=== PATIENT | female | born 1980 | race Caucasian/White ===

== ENCOUNTER 2016-08-15 12:27 | Inpatient (IN) | payer BC ==
[2016-08-15 14:59] VITALS: BMI 20.2
--- NOTE | 2016-08-15 20:18 | HP ---
Admission ROS [facility] Chief Complaint: I WANT TO GO TO REHAB Allergies/Adverse Reactions: Allergies Allergy/AdvReac Type Severity Reaction Status Date / Time peanut Allergy Verified 08/15/16 19:54 shellfish Allergy Mild Uncoded 08/15/16 19:54 History of Present Illness: 36 YEARS OLD FEMALE WITH LONG HISTORY OF ALCOHOL NICOTINE DEPENDENCE, HAS LUPUS AND OSTEOPENIA AND DEPRESSION IS ADMITTED TO REHAB Exam Limitations: No Limitations - Ebola screening Have you traveled outside of the country in the last 21 days: No Have you had contact with anyone from an Ebola affected area: No Have you been sick,other than usual withdrawal symptoms: No Do you have a fever: No - Review of Systems Constitutional: Weight Stable EENT: reports: No Symptoms Reported, Other (NEED EYE GLASSES) Respiratory: reports: No Symptoms reported Cardiac: reports: No Symptoms Reported GI: reports: No Symptoms Reported : reports: No Symptoms Reported Musculoskeletal: reports: Joint Pain (LUPUS) Integumentary: reports: Rash (FACE) Neuro: reports: No Symptoms reported, Seizure (DO NOT REMEMBER WHEN WAS THE FIRST SEIZURE AND WHEN WAS THE LAST, NO TREATMENT) Endocrine: reports: No Symptoms Reported Hematology: reports: No Symptoms Reported Psychiatric: reports: Judgement Intact, Orientated x3, Depressed Other Systems: Reviewed and Negative Patient History - Patient Medical History Hx Anemia: No Hx Asthma: No Hx Chronic Obstructive Pulmonary Disease (COPD): No Hx Cancer: No Hx Cardiac Disorders: No Hx Congestive Heart Failure: No Hx Hypertension: No Hx Hypercholesterolemia: No Hx Pacemaker: No HX Cerebrovascular Accident: No Hx Seizures: Yes (UNKNOWN) Hx Dementia: No Hx Diabetes: No Hx Gastrointestinal Disorders: No Hx Liver Disease: No Hx Genitourinary Disorders: No Hx Sexually Transmitted Disorders: No Hx Renal Disease (ESRD): No Hx Thyroid Disease: No Hx Human Immunodeficiency Virus (HIV): No Hx Hepatitis C: No Hx Depression: Yes Hx Suicide Attempt: No Hx Bipolar Disorder: No Hx Schizophrenia: No - Patient Surgical History Past Surgical History: Yes Hx Neurologic Surgery: No Hx Cataract Extraction: No Hx Cardiac Surgery: No Hx Lung Surgery: No Hx Breast Surgery: No Hx Breast Biopsy: No Hx Abdominal Surgery: No Hx Appendectomy: No Hx Cholecystectomy: No Hx Genitourinary Surgery: No Hx Section: No Hx Orthopedic Surgery: Yes (LEFT 5TH FINGER 2016) Hx Hysterectomy: No Other Surgical History: LEFT LEG 2012 Anesthesia Reaction: No - PPD History Previous Implant?: Yes Documented Results: Negative w/o proof Implanted On Prior [facility] Admission?: No PPD to be Administered?: Yes - Reproductive History Patient is a Female of Child Bearing Age (11 -55 yrs old): Yes Last Menstrual Period: 08/12/16 Patient : No - Smoking Cessation Smoking history: Current every day smoker Have you smoked in the past 12 months: Yes Aproximately how many cigarettes per day: 30 Cigars Per Day: 0 Hx Chewing Tobacco Use: No Initiated information on smoking cessation: Yes 'Breaking Loose' booklet given: 08/15/16 - Substance & Tx. History Hx Alcohol Use: Yes Hx Substance Use: No Substance Use Type: Alcohol Hx Substance Use Treatment: Yes - Substances Abused Alcohol Route: Oral Frequency: Daily Amount used: [place] Age of first use: 15 Date of Last Use: 08/09/16 Family Disease History - Family Disease History Family Disease History: Diabetes: Father, Heart Disease: Grandparent, Respiratory: Mother Admission Physical Exam S - Vital Signs Vital Signs: Vital Signs - 24 hr 08/15/16 14:52 Temperature 96 F L Pulse Rate 103 H Respiratory 20 Rate Blood Pressure 117/90 - Physical General Appearance: Yes: No Apparent Distress, Appropriately Dressed, Thin HEENTM: Yes: Hearing grossly Normal, Normal ENT Inspection, Normocephalic, Normal Voice Respiratory: Yes: Chest Non-Tender, Lungs Clear, Normal Breath Sounds, No Respiratory Distress, No Accessory Muscle Use Neck: Yes: Supple, Trachea in good position Breast: Yes: Breasts Symetrical Cardiology: Yes: Regular Rhythm, Regular Rate, S1, S2 Abdominal: Yes: Non Tender, Soft Genitourinary: Yes: Within Normal Limits Back: Yes: Normal Inspection Musculoskeletal: Yes: full range of Motion, Gait Steady, Back pain (LUPUS), Muscle Pain Extremities: Yes: Normal Range of Motion, Non-Tender Neurological: Yes: Fully Oriented, Alert, Motor Strength 5/5, Normal Response, Depressed Affect Integumentary: Yes: Warm Lymphatic: Yes: Within Normal Limits - Diagnostic (1) Alcohol dependence with uncomplicated withdrawal Current Visit: Yes Status: Acute (2) Methadone maintenance therapy patient Current Visit: Yes Status: Acute Comment: 40 MG VERIFICATION PENDING (3) Lupus Current Visit: Yes Status: Acute Comment: PLAQUENIL 200 MG PO BID (4) Osteopenia Current Visit: Yes Status: Acute Comment: CALCIUM 1500 MG DAILY (5) Nicotine dependence Current Visit: Yes Status: Acute Qualifiers: Nicotine product type: cigarettes Substance use status: in withdrawal Qualified Code(s): F17.213 - Nicotine dependence, cigarettes, with withdrawal (6) Acne Current Visit: Yes Status: Acute Qualifiers: Acne type: other acne Qualified Code(s): L70.8 - Other acne Comment: BENZYL PEROXIDE Cleared for Admission S - Detox or Rehab [facility] Level of Care: Observation Bed Detox Regimen/Protocol: Not Applicable Claeared for Rehab Admission: Yes [facility] Breath Alcohol Content Breath Alcohol Content: 0 Urine Pregancy Test - Result Urine Test Results: Negative- NO Line Present Urine Drug Screen - Results Drug Screen Negative: No Urine Drug Screen Results: MTD-Methadone
[2016-08-15] MEDS ORDERED: P-EPHED 60MG/TRIPROLIDI 2.5MG TABLET PO PRN (20:22)
[2016-08-15] MEDS ORDERED: NICOTINE POLACRILEX 4 MG GUM BC PRN (20:22)
[2016-08-15] MEDS ORDERED: LOPERAMIDE HCL 2 MG CAPSULE PO PRN (20:22)
[2016-08-15] MEDS ORDERED: MAGNESIUM HYDROX 2400MG/30ML ORAL SUSPENSION 30 ML CUP PO PRN (20:22)
[2016-08-15] MEDS ORDERED: MAGNESIUM CITRATE 300 ML BOTTLE PO PRN (20:22)
[2016-08-15] MEDS: THIAMINE HCL 100 MG TABLET (FP) PO SCH (22:25)
[2016-08-15] MEDS: MAG HYDROX/AL HYDROX/SIMETH 30 ML UNIT-DOSE CUP PO PRN (22:28)
[2016-08-15] MEDS: CLINDAMYCIN PHOSPHATE 1% TOPICAL SOLUTION 30 ML BOTTLE TP SCH (22:30)
[2016-08-15] MEDS: predniSONE 5 MG TABLET (UD) PO SCH (22:32)
[2016-08-15] MEDS: HYDROXYCHLOROQUINE SO4 200 MG TABLET (FP) PO SCH (22:32)
[2016-08-15] MEDS ORDERED: PT OWN MED DRAWER 7, Y5N ONE ×2 (22:50→23:40)
[2016-08-16] MEDS: METHADONE HCL 40 MG DISPERSABLE TABLET PO SCH (08:57)
[2016-08-16] MEDS ORDERED: PT OWN MED DRAWER 7, Y5N ONE (08:59)
[2016-08-16] MEDS: predniSONE 5 MG TABLET (UD) PO SCH ×2 (09:57→21:27)
[2016-08-16] MEDS: PRENATAL VITAMINS W/ FOLIC ACID TABLET (FP) PO SCH (09:57)
[2016-08-16] MEDS ORDERED: BENZOYL PEROXIDE 5% 60 GM GEL..GRAM. TP SCH (10:00)
[2016-08-16] MEDS: HYDROXYCHLOROQUINE SO4 200 MG TABLET (FP) PO SCH ×2 (10:00→21:26)
[2016-08-16] MEDS ORDERED: CALCIUM (OYSTER SHELL) 500 MG TABLET (FP) PO SCH (10:00)
[2016-08-16] MEDS: NICOTINE 21 MG/24 HOURS TOPICAL PATCH TD SCH (10:01)
[2016-08-16 11:13] LABS: MCH 32.4 pg (25.7-33.7); MCHC 33.4 g/dl (32.0-36.0); MEAN CELL VOLUME 96.9 fl (80-96); MEAN PLT VOLUME 7.9 fl (7.5-11.1); PLATELET COUNT 271 K/MM3 (134-434); RDW 14.7 % (11.6-15.6); WHITE BLOOD COUNT 6.1 K/mm3 (4.0-10.0)
[2016-08-16 11:30] LABS: ALBUMIN 4.2 g/dl (3.4-5.0); ALK PHOS 122 U/L (45-117); ANION GAP 9 (8-16); BILIRUBIN,TOTAL 0.3 mg/dL (0.2-1.0); CO2 27 mmol/L (21-32); CREATININE 0.6 mg/dL (0.55-1.02); GLUCOSE,RANDOM 94 mg/dL (74-106); SGOT/AST 57 U/L (15-37); SGPT/ALT 85 U/L (12-78); TOT PROT 9.2 g/dl (6.4-8.2)
[2016-08-16 12:58] LABS: URINE APPEARANCE CLEAR; URINE BILIRUBIN NEGATIVE (NEGATIVE); URINE BLOOD NEGATIVE (NEGATIVE); URINE COLOR YELLOW; URINE GLUCOSE (UA) NEGATIVE (NEGATIVE); URINE KETONE NEGATIVE (NEGATIVE); URINE NITRITE NEGATIVE (NEGATIVE); URINE PROTEIN NEGATIVE (NEGATIVE); URINE UROBILINOGEN NEGATIVE E.U./dl (0.2-1.0)
[2016-08-16 13:01] LABS: URINE LEUK ESTERASE 1+ (NEGATIVE)
[2016-08-16 13:10] LABS: URINE BACTERIA RARE /hpf (NONE SEEN); URINE MUCUS RARE; URINE RBC 2 /hpf (0-3); URINE WBC 7 /hpf (3-5)
[2016-08-16] MEDS: diphenhydrAMINE HCL 50 MG CAPSULE PO PRN (21:26)
[2016-08-16] MEDS: CLINDAMYCIN PHOSPHATE 1% TOPICAL SOLUTION 30 ML BOTTLE TP SCH (21:27)
[2016-08-16] MEDS: THIAMINE HCL 100 MG TABLET (FP) PO SCH (21:28)
[2016-08-16] MEDS: CALCIUM 500MG/VIT-D 200 UNITS COMBO TABLET (FP) PO SCH (21:28)
[2016-08-17] MEDS: METHADONE HCL 40 MG DISPERSABLE TABLET PO SCH (06:32)
[2016-08-17] MEDS ORDERED: PT OWN MED DRAWER 7, Y5N ONE ×2 (08:54→19:42)
[2016-08-17] MEDS: HYDROXYCHLOROQUINE SO4 200 MG TABLET (FP) PO SCH ×2 (09:50→21:29)
[2016-08-17] MEDS: PRENATAL VITAMINS W/ FOLIC ACID TABLET (FP) PO SCH (09:50)
[2016-08-17] MEDS: NICOTINE 21 MG/24 HOURS TOPICAL PATCH TD SCH (09:50)
[2016-08-17] MEDS: predniSONE 5 MG TABLET (UD) PO SCH ×2 (09:50→21:29)
[2016-08-17] MEDS: CALCIUM 500MG/VIT-D 200 UNITS COMBO TABLET (FP) PO SCH ×2 (09:50→21:30)
[2016-08-17] MEDS: THIAMINE HCL 100 MG TABLET (FP) PO SCH (21:29)
[2016-08-17] MEDS: diphenhydrAMINE HCL 50 MG CAPSULE PO PRN (21:29)
[2016-08-17] MEDS: CLINDAMYCIN PHOSPHATE 1% TOPICAL SOLUTION 30 ML BOTTLE TP SCH (21:30)
--- NOTE | 2016-08-17 22:37 | EKG ---
Test Reason : Blood Pressure : / mmHG Vent. Rate : 070 BPM Atrial Rate : 070 BPM P-R Int : 142 ms QRS Dur : 084 ms QT Int : 436 ms P-R-T Axes : 051 058 045 degrees QTc Int : 470 ms POOR DATA QUALITY, INTERPRETATION MAY BE ADVERSELY AFFECTED NORMAL SINUS RHYTHM EARLY REPOLARIZATION BORDERLINE ECG PROLONGED QT NO PREVIOUS ECGS AVAILABLE Confirmed by RADHA FU MD ([id number]) on 08/17/2016 10:36:58 PM Referred By: Navid Smart Confirmed By:RADHA FU MD
[2016-08-18] MEDS: METHADONE HCL 40 MG DISPERSABLE TABLET PO SCH (06:57)
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
[2016-08-18] MEDS ORDERED: PT OWN MED DRAWER 7, Y5N ONE ×3 (08:48→19:19)
[2016-08-18] MEDS: PRENATAL VITAMINS W/ FOLIC ACID TABLET (FP) PO SCH (10:05)
[2016-08-18] MEDS: predniSONE 5 MG TABLET (UD) PO SCH ×2 (10:05→21:26)
[2016-08-18] MEDS: HYDROXYCHLOROQUINE SO4 200 MG TABLET (FP) PO SCH ×2 (10:05→21:26)
[2016-08-18] MEDS: NICOTINE 21 MG/24 HOURS TOPICAL PATCH TD SCH (10:05)
[2016-08-18] MEDS: CALCIUM 500MG/VIT-D 200 UNITS COMBO TABLET (FP) PO SCH ×2 (10:32→21:27)
[2016-08-18] MEDS: THIAMINE HCL 100 MG TABLET (FP) PO SCH (21:27)
[2016-08-18] MEDS: diphenhydrAMINE HCL 50 MG CAPSULE PO PRN (21:27)
[2016-08-18] MEDS: CLINDAMYCIN PHOSPHATE 1% TOPICAL SOLUTION 30 ML BOTTLE TP SCH (21:28)
[2016-08-19] MEDS: METHADONE HCL 40 MG DISPERSABLE TABLET PO SCH (06:27)
[2016-08-19] MEDS ORDERED: PT OWN MED DRAWER 7, Y5N ONE ×4 (08:56→22:02)
[2016-08-19] MEDS: CALCIUM 500MG/VIT-D 200 UNITS COMBO TABLET (FP) PO SCH ×2 (09:28→22:00)
[2016-08-19] MEDS: predniSONE 5 MG TABLET (UD) PO SCH ×2 (09:28→22:00)
[2016-08-19] MEDS: PRENATAL VITAMINS W/ FOLIC ACID TABLET (FP) PO SCH (09:28)
[2016-08-19] MEDS: HYDROXYCHLOROQUINE SO4 200 MG TABLET (FP) PO SCH ×2 (09:28→22:02)
[2016-08-19] MEDS: NICOTINE 21 MG/24 HOURS TOPICAL PATCH TD SCH (09:28)
--- NOTE | 2016-08-19 10:25 | PN ---
Psychiatric Progress Note Vital Signs: Vital Signs Period Temp Pulse Resp BP Sys/Jose Pulse Ox Last 24 Hr 98.2 F 76 18-18 102/69 Date of Session: 08/19/16 Chief Complaint:: complaining of experiencing nightmares HPI: Patient addressing Alcohol Dependence comorbid with Opoid Dependence on Agonist Therapy, Nicotine Dependence and Mood Disorder ROS: Start Prazosin 1 mg po HS Current Medications: Active Medications Generic Name Dose Route Start Last Admin Trade Name Freq PRN Reason Stop Dose Admin Acetaminophen 650 mg 08/15/16 20:22 Tylenol - PO Q4H PRN PAIN Al Hydroxide/Mg Hydroxide 30 ml 08/15/16 20:22 08/15/16 22:28 Mylanta Oral Suspension - PO 30 ml Q6H PRN Administration DYSPEPSIA Calcium Carbonate/Cholecalciferol 1 tab 08/16/16 22:00 08/19/16 09:28 Os-Moi 500+D - PO 1 tab BID TERRY Administration Clindamycin Phosphate 1 applic 08/15/16 22:00 08/18/16 21:28 Cleocin 1% Topical Solution - TP 1 applic HS TERRY Administration Diphenhydramine HCl 50 mg 08/15/16 20:22 08/18/16 21:27 Benadryl - PO 50 mg HSMR1 PRN Administration INSOMNIA Eucalyptus/Menthol/Phenol/Sorbitol 1 each 08/15/16 20:22 Cepastat Lozenge - MM Q4H PRN SORE THROAT Guaifenesin 10 ml 08/15/16 20:22 Robitussin Dm - PO Q6H PRN COUGH Hydroxychloroquine Sulfate 200 mg 08/15/16 22:00 08/19/16 09:28 Plaquenil - PO 200 mg BID TERRY Administration Ibuprofen 400 mg 08/15/16 20:22 Motrin - PO Q6H PRN SEVERE PAIN Loperamide HCl 4 mg 08/15/16 20:22 Imodium - PO Q6H PRN DIARRHEA Magnesium Citrate 300 ml 08/15/16 20:22 08/17/16 15:41 Citroma - PO 300 ml Q48H PRN Administration CONSTIPATION Magnesium Hydroxide 30 ml 08/15/16 20:22 08/17/16 09:54 Milk Of Magnesia - PO 30 ml DAILY PRN Administration CONSTIPATION Methadone HCl 40 mg 08/16/16 07:45 08/19/16 06:27 Dolophine - PO 40 mg DAILY@0600 TERRY Administration Nicotine 21 mg 08/16/16 10:00 08/19/16 09:28 Nicoderm Patch - TD 21 mg DAILY TERRY Administration Nicotine Polacrilex 4 mg 08/15/16 20:22 Nicorette Gum - BC Q2H PRN NICOTINE REPLACEMENT RX Prazosin HCl 1 mg 08/19/16 22:00 Minipress - PO HS TERRY Prednisone 5 mg 08/15/16 22:00 08/19/16 09:28 Deltasone - PO 5 mg BID TERRY Administration Multivit/Folic Acid/Iron 1 tab 08/16/16 10:00 08/19/16 09:28 Vitamins (Sjr) - PO 1 tab DAILY TERRY Administration Pseudoephedrine/Triprolidine 1 combo 08/15/16 20:22 Actifed - PO TID PRN NASAL CONGESTION Thiamine HCl 100 mg 08/15/16 22:00 08/18/16 21:27 Vitamin B1 - PO 100 mg HS TERRY Administration Current Side Effect: No Lab tests ordered: No Lab tests reviewed: Yes Provider note:: Reports experiencing a lot of nightmares making her sleep poorly. Told commercial underwriter that she is prescribed Prazosin she has been taking the night prior to admission and that medication has been helping her a lot. However she could not recall the dosage. Syrup Mixer called [facility] pharmacy on [address] in [place] after she provided the pharmacy phone number([phone]). According to pharmacist, patient is on Prazosin 1 mg po HS Total face to face time:: 25 Mental Status Exam - Mental Status Exam Alert and Oriented to: Time, Place, Person Cognitive Function: Fair Patient Appearance: Well Groomed Mood: Anxious, Irritable Affect: Appropriate Speech Pattern: Clear Voice Loudness: Normal Thought Process: Intact Thought Disorder: Not Present Hallucinations: Denies Suicidal Ideation: Denies Homicidal Ideation: Denies Insight/Judgement: Fair Sleep: Poorly Appetite: Good Muscle strength/Tone: Normal Gait/Station: Normal Psychiatric Treatment Plan - Problem List (1) Alcohol dependence with uncomplicated withdrawal Current Visit: Yes (2) Opioid dependence on agonist therapy Current Visit: Yes (3) Nicotine dependence Current Visit: Yes (4) Mood disorder Current Visit: Yes (5) Substance induced mood disorder Current Visit: Yes (6) Acne Current Visit: Yes Qualifiers: Acne type: other acne Qualified Code(s): L70.8 - Other acne Comment: BENZYL PEROXIDE (7) Lupus Current Visit: Yes Comment: PLAQUENIL 200 MG PO BID (8) Osteopenia Current Visit: Yes Comment: CALCIUM 1500 MG DAILY Initial treatment plan: 1) Start Prazosin 1 mg po HS. 2) Monitor progress
[2016-08-19 10:31] LABS: BASOPHIL 0.5 % (0-2.0); EOSINOPHIL 1.1 % (0-4.5); MCHC 32.8 g/dl (32.0-36.0); MEAN CELL VOLUME 97.6 fl (80-96); MEAN PLT VOLUME 7.6 fl (7.5-11.1); NEUTROPHILS 50.1 % (42.8-82.8); PLATELET COUNT 235 K/MM3 (134-434); RDW 14.6 % (11.6-15.6); WHITE BLOOD COUNT 4.3 K/mm3 (4.0-10.0)
[2016-08-19 13:15] LABS: ERYTHROCYTE SEDIMENTATION RATE 44 mm/hr (0-20)
[2016-08-19] MEDS: THIAMINE HCL 100 MG TABLET (FP) PO SCH (22:00)
[2016-08-19] MEDS: diphenhydrAMINE HCL 50 MG CAPSULE PO PRN (22:01)
[2016-08-19] MEDS: CLINDAMYCIN PHOSPHATE 1% TOPICAL SOLUTION 30 ML BOTTLE TP SCH (22:03)
[2016-08-19] MEDS: PRAZOSIN HCL 1 MG CAPSULE PO SCH (22:03)
[2016-08-20] MEDS: METHADONE HCL 40 MG DISPERSABLE TABLET PO SCH (06:26)
[2016-08-20] MEDS ORDERED: PT OWN MED DRAWER 7, Y5N ONE ×2 (09:03→21:09)
[2016-08-20] MEDS: CALCIUM 500MG/VIT-D 200 UNITS COMBO TABLET (FP) PO SCH ×2 (09:52→21:08)
[2016-08-20] MEDS: NICOTINE 21 MG/24 HOURS TOPICAL PATCH TD SCH (09:52)
[2016-08-20] MEDS: predniSONE 5 MG TABLET (UD) PO SCH ×2 (09:52→21:08)
[2016-08-20] MEDS: HYDROXYCHLOROQUINE SO4 200 MG TABLET (FP) PO SCH ×2 (09:52→21:09)
[2016-08-20] MEDS: PRENATAL VITAMINS W/ FOLIC ACID TABLET (FP) PO SCH (09:52)
[2016-08-20] MEDS: PRAZOSIN HCL 1 MG CAPSULE PO SCH (21:08)
[2016-08-20] MEDS: THIAMINE HCL 100 MG TABLET (FP) PO SCH (21:08)
[2016-08-20] MEDS: CLINDAMYCIN PHOSPHATE 1% TOPICAL SOLUTION 30 ML BOTTLE TP SCH (21:09)
[2016-08-21] MEDS: METHADONE HCL 40 MG DISPERSABLE TABLET PO SCH (05:50)
[2016-08-21] MEDS ORDERED: PT OWN MED DRAWER 7, Y5N ONE ×2 (09:18→21:04)
[2016-08-21] MEDS: predniSONE 5 MG TABLET (UD) PO SCH ×2 (10:09→21:03)
[2016-08-21] MEDS: PRENATAL VITAMINS W/ FOLIC ACID TABLET (FP) PO SCH (10:09)
[2016-08-21] MEDS: CALCIUM 500MG/VIT-D 200 UNITS COMBO TABLET (FP) PO SCH ×2 (10:10→21:03)
[2016-08-21] MEDS: HYDROXYCHLOROQUINE SO4 200 MG TABLET (FP) PO SCH ×2 (10:10→21:02)
[2016-08-21] MEDS: NICOTINE 21 MG/24 HOURS TOPICAL PATCH TD SCH (10:11)
[2016-08-21] MEDS: PRAZOSIN HCL 1 MG CAPSULE PO SCH (21:02)
[2016-08-21] MEDS: THIAMINE HCL 100 MG TABLET (FP) PO SCH (21:02)
[2016-08-21] MEDS: CLINDAMYCIN PHOSPHATE 1% TOPICAL SOLUTION 30 ML BOTTLE TP SCH (21:04)
[2016-08-21] MEDS: diphenhydrAMINE HCL 50 MG CAPSULE PO PRN (22:47)
[2016-08-22] MEDS: METHADONE HCL 40 MG DISPERSABLE TABLET PO SCH (05:51)
[2016-08-22] MEDS: predniSONE 5 MG TABLET (UD) PO SCH ×2 (09:41→21:28)
[2016-08-22] MEDS: CALCIUM 500MG/VIT-D 200 UNITS COMBO TABLET (FP) PO SCH ×2 (09:41→21:28)
[2016-08-22] MEDS: PRENATAL VITAMINS W/ FOLIC ACID TABLET (FP) PO SCH (09:41)
[2016-08-22] MEDS: HYDROXYCHLOROQUINE SO4 200 MG TABLET (FP) PO SCH ×2 (09:42→21:31)
[2016-08-22] MEDS: NICOTINE 21 MG/24 HOURS TOPICAL PATCH TD SCH (09:43)
[2016-08-22] MEDS ORDERED: PT OWN MED DRAWER 7, Y5N ONE ×4 (09:43→19:54)
[2016-08-22] MEDS: MAG HYDROX/AL HYDROX/SIMETH 30 ML UNIT-DOSE CUP PO PRN (15:14)
[2016-08-22] MEDS: PRAZOSIN HCL 1 MG CAPSULE PO SCH (21:28)
[2016-08-22] MEDS: diphenhydrAMINE HCL 50 MG CAPSULE PO PRN (21:28)
[2016-08-22] MEDS: THIAMINE HCL 100 MG TABLET (FP) PO SCH (21:28)
[2016-08-22] MEDS: CLINDAMYCIN PHOSPHATE 1% TOPICAL SOLUTION 30 ML BOTTLE TP SCH (21:31)
[2016-08-23] MEDS: METHADONE HCL 40 MG DISPERSABLE TABLET PO SCH (06:46)
[2016-08-23] MEDS: NICOTINE 21 MG/24 HOURS TOPICAL PATCH TD SCH (09:39)
[2016-08-23] MEDS: CALCIUM 500MG/VIT-D 200 UNITS COMBO TABLET (FP) PO SCH ×2 (09:39→21:17)
[2016-08-23] MEDS: HYDROXYCHLOROQUINE SO4 200 MG TABLET (FP) PO SCH ×2 (09:39→21:17)
[2016-08-23] MEDS: predniSONE 5 MG TABLET (UD) PO SCH ×2 (09:39→21:17)
[2016-08-23] MEDS: PRENATAL VITAMINS W/ FOLIC ACID TABLET (FP) PO SCH (09:39)
[2016-08-23] MEDS: THIAMINE HCL 100 MG TABLET (FP) PO SCH (21:16)
[2016-08-23] MEDS: PRAZOSIN HCL 1 MG CAPSULE PO SCH (21:16)
[2016-08-23] MEDS: diphenhydrAMINE HCL 50 MG CAPSULE PO PRN (21:17)
[2016-08-23] MEDS: CLINDAMYCIN PHOSPHATE 1% TOPICAL SOLUTION 30 ML BOTTLE TP SCH (21:18)
[2016-08-23] MEDS ORDERED: PT OWN MED DRAWER 7, Y5N ONE (21:18)
[2016-08-24] MEDS: METHADONE HCL 40 MG DISPERSABLE TABLET PO SCH (07:13)
[2016-08-24] MEDS: predniSONE 5 MG TABLET (UD) PO SCH ×2 (09:48→21:36)
[2016-08-24] MEDS: CALCIUM 500MG/VIT-D 200 UNITS COMBO TABLET (FP) PO SCH ×2 (09:48→21:36)
[2016-08-24] MEDS: NICOTINE 21 MG/24 HOURS TOPICAL PATCH TD SCH (09:48)
[2016-08-24] MEDS: PRENATAL VITAMINS W/ FOLIC ACID TABLET (FP) PO SCH (09:48)
[2016-08-24] MEDS: HYDROXYCHLOROQUINE SO4 200 MG TABLET (FP) PO SCH ×2 (09:49→21:36)
[2016-08-24] MEDS: diphenhydrAMINE HCL 50 MG CAPSULE PO PRN (21:35)
[2016-08-24] MEDS: PRAZOSIN HCL 1 MG CAPSULE PO SCH (21:35)
[2016-08-24] MEDS: THIAMINE HCL 100 MG TABLET (FP) PO SCH (21:35)
[2016-08-24] MEDS: CLINDAMYCIN PHOSPHATE 1% TOPICAL SOLUTION 30 ML BOTTLE TP SCH (21:37)
[2016-08-24] MEDS ORDERED: PT OWN MED DRAWER 7, Y5N ONE (21:37)
[2016-08-25] MEDS: METHADONE HCL 40 MG DISPERSABLE TABLET PO SCH (06:13)
[2016-08-25] MEDS: PRENATAL VITAMINS W/ FOLIC ACID TABLET (FP) PO SCH (09:49)
[2016-08-25] MEDS: predniSONE 5 MG TABLET (UD) PO SCH ×2 (09:49→21:27)
[2016-08-25] MEDS: NICOTINE 21 MG/24 HOURS TOPICAL PATCH TD SCH (09:50)
[2016-08-25] MEDS: CALCIUM 500MG/VIT-D 200 UNITS COMBO TABLET (FP) PO SCH ×2 (09:50→21:27)
[2016-08-25] MEDS: HYDROXYCHLOROQUINE SO4 200 MG TABLET (FP) PO SCH ×2 (09:50→21:28)
[2016-08-25] MEDS: MAG HYDROX/AL HYDROX/SIMETH 30 ML UNIT-DOSE CUP PO PRN (11:28)
[2016-08-25] MEDS: THIAMINE HCL 100 MG TABLET (FP) PO SCH (21:27)
[2016-08-25] MEDS: diphenhydrAMINE HCL 50 MG CAPSULE PO PRN (21:27)
[2016-08-25] MEDS: PRAZOSIN HCL 1 MG CAPSULE PO SCH (21:27)
[2016-08-25] MEDS: CLINDAMYCIN PHOSPHATE 1% TOPICAL SOLUTION 30 ML BOTTLE TP SCH (21:29)
[2016-08-26] MEDS: METHADONE HCL 40 MG DISPERSABLE TABLET PO SCH (06:22)
[2016-08-26] MEDS: PRENATAL VITAMINS W/ FOLIC ACID TABLET (FP) PO SCH (09:52)
[2016-08-26] MEDS: NICOTINE 21 MG/24 HOURS TOPICAL PATCH TD SCH (09:53)
[2016-08-26] MEDS: CALCIUM 500MG/VIT-D 200 UNITS COMBO TABLET (FP) PO SCH ×2 (09:53→21:09)
[2016-08-26] MEDS: predniSONE 5 MG TABLET (UD) PO SCH ×2 (09:53→21:09)
[2016-08-26] MEDS: HYDROXYCHLOROQUINE SO4 200 MG TABLET (FP) PO SCH ×2 (09:54→21:08)
[2016-08-26] MEDS: IBUPROFEN 400 MG TABLET (FP) PO PRN (20:12)
[2016-08-26] MEDS ORDERED: PT OWN MED DRAWER 7, Y5N ONE (21:09)
[2016-08-26] MEDS: diphenhydrAMINE HCL 50 MG CAPSULE PO PRN (21:09)
[2016-08-26] MEDS: THIAMINE HCL 100 MG TABLET (FP) PO SCH (21:09)
[2016-08-26] MEDS: PRAZOSIN HCL 1 MG CAPSULE PO SCH (21:41)
[2016-08-26] MEDS: CLINDAMYCIN PHOSPHATE 1% TOPICAL SOLUTION 30 ML BOTTLE TP SCH (21:42)
[2016-08-27] MEDS: METHADONE HCL 40 MG DISPERSABLE TABLET PO SCH (06:10)
[2016-08-27] MEDS: PRENATAL VITAMINS W/ FOLIC ACID TABLET (FP) PO SCH (09:43)
[2016-08-27] MEDS: CALCIUM 500MG/VIT-D 200 UNITS COMBO TABLET (FP) PO SCH ×2 (09:43→21:20)
[2016-08-27] MEDS: predniSONE 5 MG TABLET (UD) PO SCH ×2 (09:44→21:21)
[2016-08-27] MEDS: NICOTINE 21 MG/24 HOURS TOPICAL PATCH TD SCH (09:44)
[2016-08-27] MEDS: HYDROXYCHLOROQUINE SO4 200 MG TABLET (FP) PO SCH ×2 (09:44→21:22)
--- NOTE | 2016-08-27 16:26 | PN ---
S Progress Note Note: 36 y/o f pt with h/o sle with umbilicaal hernia c/o left lower qud and umbilical pain . No n/v or diarrhea, no fever , no anorexia no urinary complaints , no vag d/c , lmp 08/12/16. exam Vital Signs Temperature 98.2 F 08/27/16 06:45 Pulse Rate 77 08/27/16 06:45 Respiratory Rate 18 08/27/16 06:45 Blood Pressure 100/64 08/27/16 06:45 O2 Sat by Pulse Oximetry (%) Laboratory Tests 08/16/16 08/16/16 08/16/16 06:15 06:15 06:15 WBC 6.1 RBC 4.19 Hgb 13.6 Hct 40.6 MCV 96.9 H MCHC 33.4 RDW 14.7 Plt Count 271 MPV 7.9 Neutrophils % Lymphocytes % Monocytes % Eosinophils % Basophils % ESR Sodium 137 Potassium 4.3 Chloride 101 Carbon Dioxide 27 Anion Gap 9 BUN 17 Creatinine 0.6 Creat Clearance w eGFR > 60 Random Glucose 94 Calcium 10.0 Total Bilirubin 0.3 AST 57 H ALT 85 H Alkaline Phosphatase 122 H Total Protein 9.2 H Albumin 4.2 Urine Color Urine Appearance Urine pH Ur Specific [place] Urine Protein Urine Glucose (UA) Urine Ketones Urine Blood Urine Nitrite Urine Bilirubin Urine Urobilinogen Ur Leukocyte Esterase Urine RBC Urine WBC Ur Epithelial Cells Urine Bacteria Urine Mucus Rheumatoid Factor ISSAC Screen RPR Titer Nonreactive 08/16/16 08/19/16 08/19/16 11:16 07:00 07:00 WBC 4.3 RBC 4.26 Hgb 13.6 Hct 41.6 MCV 97.6 H MCHC 32.8 RDW 14.6 Plt Count 235 MPV 7.6 Neutrophils % 50.1 Lymphocytes % 33.6 Monocytes % 14.7 H Eosinophils % 1.1 Basophils % 0.5 ESR 44 H Sodium Potassium Chloride Carbon Dioxide Anion Gap BUN Creatinine Creat Clearance w eGFR Random Glucose Calcium Total Bilirubin AST ALT Alkaline Phosphatase Total Protein Albumin Urine Color Yellow Urine Appearance Clear Urine pH 6.0 Ur Specific [place] 1.021 Urine Protein Negative Urine Glucose (UA) Negative Urine Ketones Negative Urine Blood Negative Urine Nitrite Negative Urine Bilirubin Negative Urine Urobilinogen Negative Ur Leukocyte Esterase 1+ H Urine RBC 2 Urine WBC 7 Ur Epithelial Cells Few Urine Bacteria Rare Urine Mucus Rare Rheumatoid Factor ISSAC Screen Negative RPR Titer 08/19/16 07:00 WBC RBC Hgb Hct MCV MCHC RDW Plt Count MPV Neutrophils % Lymphocytes % Monocytes % Eosinophils % Basophils % ESR Sodium Potassium Chloride Carbon Dioxide Anion Gap BUN Creatinine Creat Clearance w eGFR Random Glucose Calcium Total Bilirubin AST ALT Alkaline Phosphatase Total Protein Albumin Urine Color Urine Appearance Urine pH Ur Specific [place] Urine Protein Urine Glucose (UA) Urine Ketones Urine Blood Urine Nitrite Urine Bilirubin Urine Urobilinogen Ur Leukocyte Esterase Urine RBC Urine WBC Ur Epithelial Cells Urine Bacteria Urine Mucus Rheumatoid Factor < 10.0 ISSAC Screen RPR Titer pt aox3 ambulating in nad abd small umbilical hernia mild tenderness left lq, no mass or rebound imp abd pain plan cbc, comp metabolic, amylase. lipase u/s of abd, u/a , beta sub unit
[2016-08-27] MEDS: CLINDAMYCIN PHOSPHATE 1% TOPICAL SOLUTION 30 ML BOTTLE TP SCH (21:20)
[2016-08-27] MEDS: MAG HYDROX/AL HYDROX/SIMETH 30 ML UNIT-DOSE CUP PO PRN (21:21)
[2016-08-27] MEDS: diphenhydrAMINE HCL 50 MG CAPSULE PO PRN (21:21)
[2016-08-27] MEDS: THIAMINE HCL 100 MG TABLET (FP) PO SCH (21:21)
[2016-08-27] MEDS: PRAZOSIN HCL 1 MG CAPSULE PO SCH (21:21)
[2016-08-28] MEDS: METHADONE HCL 40 MG DISPERSABLE TABLET PO SCH (06:59)
[2016-08-28] MEDS: predniSONE 5 MG TABLET (UD) PO SCH ×2 (09:50→21:24)
[2016-08-28] MEDS: PRENATAL VITAMINS W/ FOLIC ACID TABLET (FP) PO SCH (09:50)
[2016-08-28] MEDS: CALCIUM 500MG/VIT-D 200 UNITS COMBO TABLET (FP) PO SCH ×2 (09:50→21:24)
[2016-08-28] MEDS: HYDROXYCHLOROQUINE SO4 200 MG TABLET (FP) PO SCH ×2 (09:51→21:24)
[2016-08-28] MEDS: NICOTINE 21 MG/24 HOURS TOPICAL PATCH TD SCH (09:51)
[2016-08-28 10:01] LABS: AMYLASE 64 U/L (25-115); ANION GAP 6 (8-16); CALCIUM 8.8 mg/dL (8.5-10.1); CO2 33 mmol/L (21-32); CREATININE 0.6 mg/dL (0.55-1.02); GLUCOSE,RANDOM 73 mg/dL (74-106)
[2016-08-28 10:07] LABS: BASOPHIL 0.9 % (0-2.0); EOSINOPHIL 1.5 % (0-4.5); MCH 32.4 pg (25.7-33.7); MCHC 33.3 g/dl (32.0-36.0); MEAN CELL VOLUME 97.4 fl (80-96); MEAN PLT VOLUME 7.3 fl (7.5-11.1); NEUTROPHILS 58.4 % (42.8-82.8); PLATELET COUNT 327 K/MM3 (134-434); WHITE BLOOD COUNT 6.6 K/mm3 (4.0-10.0)
[2016-08-28] MEDS ORDERED: COLLOIDAL OATMEAL 1 BAR EACH TP PRN (13:13)
[2016-08-28 15:01] LABS: URINE APPEARANCE CLEAR; URINE BILIRUBIN NEGATIVE (NEGATIVE); URINE BLOOD NEGATIVE (NEGATIVE); URINE COLOR YELLOW; URINE GLUCOSE (UA) NEGATIVE (NEGATIVE); URINE KETONE NEGATIVE (NEGATIVE); URINE NITRITE NEGATIVE (NEGATIVE); URINE PROTEIN NEGATIVE (NEGATIVE); URINE UROBILINOGEN NEGATIVE E.U./dl (0.2-1.0)
[2016-08-28 15:10] LABS: URINE LEUK ESTERASE 1+ (NEGATIVE)
[2016-08-28 15:26] LABS: URINE HYALINE CAST 1 /lpf; URINE MUCUS RARE; URINE RBC 5 /hpf (0-3); URINE WBC 5 /hpf (3-5)
[2016-08-28] MEDS: IBUPROFEN 400 MG TABLET (FP) PO PRN (18:00)
[2016-08-28] MEDS: ACETAMINOPHEN 325 MG TABLET (FP) PO PRN (19:13)
[2016-08-28] MEDS: THIAMINE HCL 100 MG TABLET (FP) PO SCH (21:23)
[2016-08-28] MEDS: diphenhydrAMINE HCL 50 MG CAPSULE PO PRN (21:24)
[2016-08-28] MEDS: PRAZOSIN HCL 1 MG CAPSULE PO SCH (21:24)
[2016-08-28] MEDS ORDERED: PT OWN MED DRAWER 7, Y5N ONE (21:25)
[2016-08-28] MEDS: CLINDAMYCIN PHOSPHATE 1% TOPICAL SOLUTION 30 ML BOTTLE TP SCH (21:25)
[2016-08-29] MEDS: METHADONE HCL 40 MG DISPERSABLE TABLET PO SCH (07:10)
[2016-08-29] MEDS: PRENATAL VITAMINS W/ FOLIC ACID TABLET (FP) PO SCH (10:45)
[2016-08-29] MEDS: HYDROXYCHLOROQUINE SO4 200 MG TABLET (FP) PO SCH ×2 (10:45→21:24)
[2016-08-29] MEDS: NICOTINE 21 MG/24 HOURS TOPICAL PATCH TD SCH (10:46)
[2016-08-29] MEDS: CALCIUM 500MG/VIT-D 200 UNITS COMBO TABLET (FP) PO SCH ×2 (10:46→21:24)
[2016-08-29] MEDS: predniSONE 5 MG TABLET (UD) PO SCH ×2 (10:47→21:24)
[2016-08-29] MEDS ORDERED: METHADONE HCL 40 MG DISPERSABLE TABLET PO ONE ×2 (10:53→13:00)
[2016-08-29] MEDS: IBUPROFEN 400 MG TABLET (FP) PO PRN ×2 (14:47→19:43)
[2016-08-29] MEDS: PRAZOSIN HCL 1 MG CAPSULE PO SCH (21:23)
[2016-08-29] MEDS: diphenhydrAMINE HCL 50 MG CAPSULE PO PRN (21:23)
[2016-08-29] MEDS: THIAMINE HCL 100 MG TABLET (FP) PO SCH (21:23)
[2016-08-29] MEDS: CLINDAMYCIN PHOSPHATE 1% TOPICAL SOLUTION 30 ML BOTTLE TP SCH (21:25)
[2016-08-29] MEDS ORDERED: PT OWN MED DRAWER 7, Y5N ONE (21:25)
[2016-08-30] MEDS: METHADONE HCL 40 MG DISPERSABLE TABLET PO SCH (06:18)
[2016-08-30] MEDS: PRENATAL VITAMINS W/ FOLIC ACID TABLET (FP) PO SCH (09:38)
[2016-08-30] MEDS: HYDROXYCHLOROQUINE SO4 200 MG TABLET (FP) PO SCH ×2 (09:39→21:47)
[2016-08-30] MEDS: NICOTINE 21 MG/24 HOURS TOPICAL PATCH TD SCH (09:39)
[2016-08-30] MEDS: predniSONE 5 MG TABLET (UD) PO SCH ×2 (09:39→21:46)
[2016-08-30] MEDS: CALCIUM 500MG/VIT-D 200 UNITS COMBO TABLET (FP) PO SCH ×2 (09:39→21:46)
[2016-08-30] MEDS ORDERED: PT OWN MED DRAWER 7, Y5N ONE (19:22)
[2016-08-30] MEDS: PRAZOSIN HCL 1 MG CAPSULE PO SCH (21:46)
[2016-08-30] MEDS: diphenhydrAMINE HCL 50 MG CAPSULE PO PRN (21:46)
[2016-08-30] MEDS: CLINDAMYCIN PHOSPHATE 1% TOPICAL SOLUTION 30 ML BOTTLE TP SCH (21:47)
[2016-08-30] MEDS: THIAMINE HCL 100 MG TABLET (FP) PO SCH (21:47)
[2016-08-31] MEDS: METHADONE HCL 40 MG DISPERSABLE TABLET PO SCH (06:08)
[2016-08-31] MEDS: NICOTINE 21 MG/24 HOURS TOPICAL PATCH TD SCH (09:46)
[2016-08-31] MEDS: PRENATAL VITAMINS W/ FOLIC ACID TABLET (FP) PO SCH (09:46)
[2016-08-31] MEDS: predniSONE 5 MG TABLET (UD) PO SCH ×2 (09:46→21:42)
[2016-08-31] MEDS: CALCIUM 500MG/VIT-D 200 UNITS COMBO TABLET (FP) PO SCH ×2 (09:47→21:42)
[2016-08-31] MEDS: HYDROXYCHLOROQUINE SO4 200 MG TABLET (FP) PO SCH ×2 (09:47→21:43)
[2016-08-31] MEDS: MAG HYDROX/AL HYDROX/SIMETH 30 ML UNIT-DOSE CUP PO PRN (11:58)
[2016-08-31] MEDS: IBUPROFEN 400 MG TABLET (FP) PO PRN (13:12)
[2016-08-31] MEDS: diphenhydrAMINE HCL 50 MG CAPSULE PO PRN (21:42)
[2016-08-31] MEDS: THIAMINE HCL 100 MG TABLET (FP) PO SCH (21:42)
[2016-08-31] MEDS: PRAZOSIN HCL 1 MG CAPSULE PO SCH (21:42)
[2016-08-31] MEDS: CLINDAMYCIN PHOSPHATE 1% TOPICAL SOLUTION 30 ML BOTTLE TP SCH (21:43)
[2016-09-01] MEDS: METHADONE HCL 40 MG DISPERSABLE TABLET PO SCH (06:29)
[2016-09-01] MEDS: CALCIUM 500MG/VIT-D 200 UNITS COMBO TABLET (FP) PO SCH ×2 (10:17→21:24)
[2016-09-01] MEDS: HYDROXYCHLOROQUINE SO4 200 MG TABLET (FP) PO SCH ×2 (10:17→21:25)
[2016-09-01] MEDS: predniSONE 5 MG TABLET (UD) PO SCH ×2 (10:17→21:24)
[2016-09-01] MEDS: PRENATAL VITAMINS W/ FOLIC ACID TABLET (FP) PO SCH (10:17)
[2016-09-01] MEDS: NICOTINE 21 MG/24 HOURS TOPICAL PATCH TD SCH (10:18)
[2016-09-01] MEDS: MAG HYDROX/AL HYDROX/SIMETH 30 ML UNIT-DOSE CUP PO PRN (17:45)
[2016-09-01] MEDS: guaiFENesin/D-METHORPHAN HB 10 ML UNIT-DOSE CUPS PO PRN (20:09)
[2016-09-01] MEDS: PRAZOSIN HCL 1 MG CAPSULE PO SCH (21:24)
[2016-09-01] MEDS: THIAMINE HCL 100 MG TABLET (FP) PO SCH (21:24)
[2016-09-01] MEDS: diphenhydrAMINE HCL 50 MG CAPSULE PO PRN (21:24)
[2016-09-01] MEDS: CLINDAMYCIN PHOSPHATE 1% TOPICAL SOLUTION 30 ML BOTTLE TP SCH (21:25)
[2016-09-01] MEDS: IBUPROFEN 400 MG TABLET (FP) PO PRN (22:25)
[2016-09-02] MEDS: METHADONE HCL 40 MG DISPERSABLE TABLET PO SCH (06:21)
[2016-09-02] MEDS: NICOTINE 21 MG/24 HOURS TOPICAL PATCH TD SCH (09:51)
[2016-09-02] MEDS: predniSONE 5 MG TABLET (UD) PO SCH ×2 (09:51→21:34)
[2016-09-02] MEDS: CALCIUM 500MG/VIT-D 200 UNITS COMBO TABLET (FP) PO SCH ×2 (09:51→21:34)
[2016-09-02] MEDS: HYDROXYCHLOROQUINE SO4 200 MG TABLET (FP) PO SCH ×2 (09:51→21:34)
[2016-09-02] MEDS: PRENATAL VITAMINS W/ FOLIC ACID TABLET (FP) PO SCH (09:51)
[2016-09-02] MEDS: guaiFENesin/D-METHORPHAN HB 10 ML UNIT-DOSE CUPS PO PRN (11:09)
[2016-09-02] MEDS: MAG HYDROX/AL HYDROX/SIMETH 30 ML UNIT-DOSE CUP PO PRN (11:09)
[2016-09-02] MEDS: MENTHOL/PHENOL 1 EACH UD MM PRN (17:41)
[2016-09-02] MEDS: ACETAMINOPHEN 325 MG TABLET (FP) PO PRN (17:41)
[2016-09-02] MEDS: diphenhydrAMINE HCL 50 MG CAPSULE PO PRN (21:33)
[2016-09-02] MEDS: THIAMINE HCL 100 MG TABLET (FP) PO SCH (21:33)
[2016-09-02] MEDS: PRAZOSIN HCL 1 MG CAPSULE PO SCH (21:33)
[2016-09-02] MEDS: CLINDAMYCIN PHOSPHATE 1% TOPICAL SOLUTION 30 ML BOTTLE TP SCH (21:35)
[2016-09-02] MEDS ORDERED: PT OWN MED DRAWER 7, Y5N ONE (21:35)
[2016-09-03] MEDS: METHADONE HCL 40 MG DISPERSABLE TABLET PO SCH (06:07)
[2016-09-03] MEDS: guaiFENesin/D-METHORPHAN HB 10 ML UNIT-DOSE CUPS PO PRN ×2 (06:08→17:41)
[2016-09-03] MEDS: predniSONE 5 MG TABLET (UD) PO SCH ×2 (09:45→21:06)
[2016-09-03] MEDS: HYDROXYCHLOROQUINE SO4 200 MG TABLET (FP) PO SCH ×2 (09:45→21:06)
[2016-09-03] MEDS: PRENATAL VITAMINS W/ FOLIC ACID TABLET (FP) PO SCH (09:45)
[2016-09-03] MEDS: CALCIUM 500MG/VIT-D 200 UNITS COMBO TABLET (FP) PO SCH ×2 (09:45→21:06)
[2016-09-03] MEDS: NICOTINE 21 MG/24 HOURS TOPICAL PATCH TD SCH (09:45)
[2016-09-03] MEDS: ACETAMINOPHEN 325 MG TABLET (FP) PO PRN (17:41)
[2016-09-03] MEDS: MENTHOL/PHENOL 1 EACH UD MM PRN ×2 (17:41→21:42)
[2016-09-03] MEDS: THIAMINE HCL 100 MG TABLET (FP) PO SCH (21:06)
[2016-09-03] MEDS: diphenhydrAMINE HCL 50 MG CAPSULE PO PRN (21:06)
[2016-09-03] MEDS: PRAZOSIN HCL 1 MG CAPSULE PO SCH (21:06)
[2016-09-03] MEDS ORDERED: PT OWN MED DRAWER 7, Y5N ONE (21:07)
[2016-09-03] MEDS: CLINDAMYCIN PHOSPHATE 1% TOPICAL SOLUTION 30 ML BOTTLE TP SCH (21:07)
[2016-09-04] MEDS: METHADONE HCL 40 MG DISPERSABLE TABLET PO SCH (06:22)
[2016-09-04] MEDS: NICOTINE 21 MG/24 HOURS TOPICAL PATCH TD SCH (09:56)
[2016-09-04] MEDS: CALCIUM 500MG/VIT-D 200 UNITS COMBO TABLET (FP) PO SCH ×2 (09:56→21:22)
[2016-09-04] MEDS: predniSONE 5 MG TABLET (UD) PO SCH ×2 (09:56→21:22)
[2016-09-04] MEDS: HYDROXYCHLOROQUINE SO4 200 MG TABLET (FP) PO SCH ×2 (09:56→21:22)
[2016-09-04] MEDS: ACETAMINOPHEN 325 MG TABLET (FP) PO PRN ×2 (09:57→19:04)
[2016-09-04] MEDS: guaiFENesin/D-METHORPHAN HB 10 ML UNIT-DOSE CUPS PO PRN ×2 (09:57→19:04)
[2016-09-04] MEDS: PRENATAL VITAMINS W/ FOLIC ACID TABLET (FP) PO SCH (09:57)
[2016-09-04] MEDS: MENTHOL/PHENOL 1 EACH UD MM PRN ×2 (09:59→19:04)
--- NOTE | 2016-09-04 10:54 | PN ---
Psychiatric Progress Note Vital Signs: Vital Signs Period Temp Pulse Resp BP Sys/Jose Pulse Ox Last 24 Hr 97.9 F 91 18-20 110/65 Date of Session: 09/04/16 Chief Complaint:: Psychiatrist Discharge Note HPI: Patient addressing Alcohol Dependence comorbid with Opoid Dependence on Agonist Therapy and Mood Disorder ROS: Acne, Lupus, Osteopenia were medically managed Current Medications: Active Medications Generic Name Dose Route Start Last Admin Trade Name Freq PRN Reason Stop Dose Admin Acetaminophen 650 mg 08/15/16 20:22 09/04/16 09:57 Tylenol - PO 650 mg Q4H PRN Administration PAIN Al Hydroxide/Mg Hydroxide 30 ml 08/15/16 20:22 09/02/16 11:09 Mylanta Oral Suspension - PO 30 ml Q6H PRN Administration DYSPEPSIA Calcium Carbonate/Cholecalciferol 1 tab 08/16/16 22:00 09/04/16 09:56 Os-Moi 500+D - PO 1 tab BID TERRY Administration Clindamycin Phosphate 1 applic 08/15/16 22:00 09/03/16 21:07 Cleocin 1% Topical Solution - TP 1 applic HS TERRY Administration Colloidal Oatmeal 1 applic 08/28/16 13:13 08/28/16 17:09 Aveeno Soap - TP 1 applic DAILY PRN Administration HYGEINE Diphenhydramine HCl 50 mg 08/15/16 20:22 09/03/16 21:06 Benadryl - PO 50 mg HSMR1 PRN Administration INSOMNIA Eucalyptus/Menthol/Phenol/Sorbitol 1 each 08/15/16 20:22 09/04/16 09:59 Cepastat Lozenge - MM 1 each Q4H PRN Administration SORE THROAT Guaifenesin 10 ml 08/15/16 20:22 09/04/16 09:57 Robitussin Dm - PO 10 ml Q6H PRN Administration COUGH Hydroxychloroquine Sulfate 200 mg 08/15/16 22:00 09/04/16 09:56 Plaquenil - PO 200 mg BID TERRY Administration Ibuprofen 400 mg 08/15/16 20:22 09/01/16 22:25 Motrin - PO 400 mg Q6H PRN Administration SEVERE PAIN Loperamide HCl 4 mg 08/15/16 20:22 Imodium - PO Q6H PRN DIARRHEA Magnesium Citrate 300 ml 08/15/16 20:22 08/17/16 15:41 Citroma - PO 300 ml Q48H PRN Administration CONSTIPATION Magnesium Hydroxide 30 ml 08/15/16 20:22 08/17/16 09:54 Milk Of Magnesia - PO 30 ml DAILY PRN Administration CONSTIPATION Methadone HCl 40 mg 09/03/16 06:00 09/04/16 06:22 Dolophine - PO 09/09/16 05:59 40 mg DAILY@0600 TERRY Administration Nicotine 21 mg 08/16/16 10:00 09/04/16 09:56 Nicoderm Patch - TD 21 mg DAILY TERRY Administration Nicotine Polacrilex 4 mg 08/15/16 20:22 Nicorette Gum - BC Q2H PRN NICOTINE REPLACEMENT RX Prazosin HCl 1 mg 08/19/16 22:00 09/03/16 21:06 Minipress - PO 1 mg HS TERRY Administration Prednisone 5 mg 08/15/16 22:00 09/04/16 09:56 Deltasone - PO 5 mg BID TERRY Administration Multivit/Folic Acid/Iron 1 tab 08/16/16 10:00 09/04/16 09:57 Vitamins (Sjr) - PO 1 tab DAILY TERRY Administration Pseudoephedrine/Triprolidine 1 combo 08/15/16 20:22 Actifed - PO TID PRN NASAL CONGESTION Thiamine HCl 100 mg 08/15/16 22:00 09/03/16 21:06 Vitamin B1 - PO 100 mg HS TERRY Administration Current Side Effect: No Lab tests ordered: Yes Lab tests reviewed: Yes Provider note:: Patient will complete this program on 09/05/16. She has met her treatment goals and will continue to address her issues in outpatient treatment at [facility]. Told contract technical writer that from her participation in this program.she has learned she has to do things for herself not to please someone else like her father. She responded well to Prazosin 1 mg po HS. Script for 30 days suppy of that medication will be electronically transmitted to [facility]/ Pharmacy at [address] [place] [address]. She is stable for discharge on Total face to face time:: 35 Mental Status Exam - Mental Status Exam Alert and Oriented to: Time, Place, Person Cognitive Function: Fair Patient Appearance: Well Groomed Mood: Hopeful, Euthymic Affect: Appropriate Patient Behavior: Cooperative Speech Pattern: Clear Voice Loudness: Normal Thought Process: Intact Thought Disorder: Not Present Hallucinations: Denies Suicidal Ideation: Denies Homicidal Ideation: Denies Insight/Judgement: Fair Sleep: Fair Appetite: Good Muscle strength/Tone: Normal Gait/Station: Normal Psychiatric Treatment Plan - Problem List (1) Alcohol dependence with uncomplicated withdrawal Current Visit: Yes (2) Opioid dependence on agonist therapy Current Visit: Yes (3) Nicotine dependence Current Visit: Yes (4) Mood disorder Current Visit: Yes (5) Substance induced mood disorder Current Visit: Yes (6) Acne Current Visit: Yes Qualifiers: Acne type: other acne Qualified Code(s): L70.8 - Other acne Comment: BENZYL PEROXIDE (7) Lupus Current Visit: Yes Comment: PLAQUENIL 200 MG PO BID (8) Osteopenia Current Visit: Yes Comment: CALCIUM 1500 MG DAILY Initial treatment plan: Patient will be discharged tomorrow and refered to [facility] for outpatient treatment
[2016-09-04] MEDS: THIAMINE HCL 100 MG TABLET (FP) PO SCH (21:21)
[2016-09-04] MEDS: diphenhydrAMINE HCL 50 MG CAPSULE PO PRN (21:21)
[2016-09-04] MEDS: PRAZOSIN HCL 1 MG CAPSULE PO SCH (21:21)
[2016-09-04] MEDS: CLINDAMYCIN PHOSPHATE 1% TOPICAL SOLUTION 30 ML BOTTLE TP SCH (21:23)
[2016-09-04] MEDS ORDERED: PT OWN MED DRAWER 7, Y5N ONE (21:23)
[2016-09-05] MEDS: METHADONE HCL 40 MG DISPERSABLE TABLET PO SCH (06:19)
[2016-09-05 06:59] VITALS: BP 96/61; PULSE 84; TEMP 97.6
[2016-09-05] MEDS ORDERED: PT OWN MED DRAWER 7, Y5N ONE (08:57)
[2016-09-05] MEDS: PRENATAL VITAMINS W/ FOLIC ACID TABLET (FP) PO SCH (09:05)
[2016-09-05] MEDS: CALCIUM 500MG/VIT-D 200 UNITS COMBO TABLET (FP) PO SCH (09:05)
[2016-09-05] MEDS: HYDROXYCHLOROQUINE SO4 200 MG TABLET (FP) PO SCH (09:06)
[2016-09-05] MEDS: predniSONE 5 MG TABLET (UD) PO SCH (09:06)
[2016-09-05] MEDS: guaiFENesin/D-METHORPHAN HB 10 ML UNIT-DOSE CUPS PO PRN (09:06)
[2016-09-05] MEDS: NICOTINE 21 MG/24 HOURS TOPICAL PATCH TD SCH (09:06)
== END 2016-09-05 09:15 | disposition home or self-care (01) | DRG 772 ==
LOC: YASAS 12:27 → Y3W 19:33
PROVIDERS: ADMIT Psychiatry & Neurology Psychiatry; ATTEND Psychiatry & Neurology Psychiatry
PROC: HZ42ZZZ Group Counseling for Substance Abuse Treatment, Cognitive-Behavioral (ICD-10-PCS; principal; 2016-09-05)
DX: F11.20 Opioid dependence, uncomplicated (principal); F10.230 Alcohol dependence with withdrawal, uncomplicated; F17.210 Nicotine dependence, cigarettes, uncomplicated; F19.24 Other psychoactive substance dependence with psychoactive substance-induced mood disorder; F39 Unspecified mood [affective] disorder; L70.8 Other acne; M32.9 Systemic lupus erythematosus, unspecified; M85.80 Other specified disorders of bone density and structure, unspecified site
CPT/HCPCS: 36415; 76700-TC; 80048; 80053; 81003; 81015; 82150; 83690; 84702; 85025; 85027; 85651; 86038; 86431; 86593; 93005; 93010